=== PATIENT | male | born 1985 | race Caucasian/White ===

== ENCOUNTER 2019-01-30 15:51 | Emergency (ER) | payer OTHER ==
--- NOTE | 2019-01-30 15:50 | EDPHY ---
H & P Time Seen by Provider: 01/30/19 16:47 Constitutional: Initial Vital Signs Temperature (C) 36.6 C 01/30/19 15:56 Heart Rate 75 01/30/19 15:56 Respiratory Rate 16 01/30/19 15:56 Blood Pressure 140/105 H 01/30/19 15:56 O2 Sat (%) 98 01/30/19 15:56 O2 Delivery Mode Room Air Allergies/Adverse Reactions: No Known Allergies Allergy (Unverified 01/30/19 16:07) Home Medications: Medication Instructions Recorded Ibuprofen [Motrin] 800 mg PO Q8 #20 tab 01/30/19 Medical Decision Making - Diagnostics Imaging Results: Imaging Impressions Head CT 01/30/19 15:58 Impression: Normal CT of the brain (without and with contrast enhancement). Consider MRI of the brain (without and with contrast), if there is continuing clinical concern, and if not contraindicated. Findings were discussed with Nikhil Parra MD at 17:43, on 01/30/2019. Imaging: Discussed imaging studies w/ banquet server on call Radiologist, I viewed and interpreted images myself ED Course/Re-evaluation: CHIEF COMPLAINT: Headache HISTORY OF PRESENT ILLNESS: 33-year-old gentleman who works for [employer]. He has had a worsening headache for approximately 2 weeks. The headaches on the right side of his head. He does denies any fevers or chills, no nausea vomiting, no photophobia, no acoustic phobia, no neurologic problems. He also states however that despite the fact he has migraines at times and has had for years this 1 seems a bit different than him a different place. Patient denies neck stiffness or neck pain. Patient denies trauma. Patient denies blood thinners. Ablation denies any sinus problems. REVIEW OF SYSTEMS: A comprehensive 10 system review of systems is otherwise negative aside from elements mentioned in the history of present illness and medical decision making. PHYSICAL EXAM: HR, BP, O2 Sat, RR. Temp noted General Appearance: Alert, well hydrated, appropriate, and non-toxic appearing. Head: Atraumatic without scalp tenderness or obvious injury Eyes: Pupils equal, round, reactive to light and accommodation, EOMI, no trauma , no injection. Ears: Clear bilaterally, no perforation, normal landmarks Nose: Atraumatic, no rhinorrhea, clear. Throat: There is no erythema or exudates, no lesions, normal tonsils, mucus membranes moist. Neck: Supple, 2+ carotid upstroke, nontender, no lymphadenopathy. Respiratory: No retractions, no distress, no wheezes, and no accessory muscle use. Lungs are clear to auscultation bilaterally. Cardiovascular: Regular rate and rhythm, no murmurs, rubs, or gallops. Bilateral carotid, radial, dorsalis pedis, and posterior tibial pulses intact. Good capillary refill all extremities. Gastrointestinal: Abdomen is soft, nontender, non-distended, no masses, no rebound, no guarding, no peritoneal signs. Musculoskeletal: Normal active ROM of all extremities, atraumatic. Neurological: Alert, appropriate, and interactive. The patient has normal DTRs and non-focal cranial nerves, motor, sensory, and cerebellar exam. Skin: No rashes, good turgor, no nodules on palpation. 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 MEDICAL DECISION MAKING: This patient has a headache which has been progressive for 2 weeks. I have given him Toradol, dexamethasone, and Reglan. I am doing neuro imaging to make sure there is no bleed and no mass. 1647: Patient's headache has almost completely resolved after medication. He still has a fullness, but no longer has a sharp pain. 1745: I spoke with Dr. Pascual, radiologist, who reports that the head CT has no acute findings. 1755: Reassessed patient and discussed imaging findings. I have prescribed him Motrin and advised him to follow up with a neurologist. Return precautions provided; patient is comfortable with this plan. - Data Points Laboratory Results: 01/30/19 16:14 POC Hgb 15.3 gm/dL gm/dL (13.7-17.5) POC Hct 45 % % (40-51) POC Sodium 141 mEq/L mEq/L (135-145) POC Potassium 3.2 mEq/L L mEq/L (3.3-5.0) POC Chloride 103 mEq/L mEq/L (97-110) POC Total CO2 23 mEq/L mEq/L (22-31) POC BUN 12 mg/dL mg/dL (7-23) POC Creatinine 0.9 mg/dL mg/dL (0.7-1.3) POC Glucose 95 mg/dL mg/dL (70-100) Medications Given: Discontinued Medications Dexamethasone (Decadron Injection) 10 mg IVP EDNOW ONE Stop: 01/30/19 15:57 Last Admin: 01/30/19 16:12 Dose: 10 mg Ketorolac Tromethamine (Toradol) 30 mg IVP EDNOW ONE Stop: 01/30/19 15:57 Last Admin: 01/30/19 16:11 Dose: 30 mg Metoclopramide HCl (Reglan Injection) 10 mg IVP EDNOW ONE Stop: 01/30/19 15:57 Last Admin: 01/30/19 16:12 Dose: 10 mg Point of Care Test Results: Chemistry 01/30/19 16:14 POC Sodium 141 mEq/L mEq/L (135-145) POC Potassium 3.2 mEq/L L mEq/L (3.3-5.0) POC Chloride 103 mEq/L mEq/L (97-110) POC Total CO2 23 mEq/L mEq/L (22-31) POC BUN 12 mg/dL mg/dL (7-23) POC Creatinine 0.9 mg/dL mg/dL (0.7-1.3) POC Glucose 95 mg/dL mg/dL (70-100) ISTAT H&H 01/30/19 16:14 POC Hgb 15.3 gm/dL gm/dL (13.7-17.5) POC Hct 45 % % (40-51) Departure - Departure Disposition: Home, Routine, Self-Care Clinical Impression: Headache Qualifiers: Headache type: unspecified Headache chronicity pattern: acute headache Intractability: intractable Qualified Code(s): R51 - Headache Condition: Good Instructions: Acute Headache (ED) Additional Instructions: 1. Follow-up with your primary care physician within 72 hours. 2. Return to the emergency department immediately for recurrence of headache, nausea, vomiting, numbness, weakness, neck pain, fever or other concerns. 3. Use Tylenol and/or ibuprofen as directed. Referrals: Scooter Raines MD [Medical Doctor] - As per Instructions Prescriptions: Ibuprofen [Motrin] 800 mg PO Q8 #20 tab
[2019-01-30] MEDS ORDERED: DEXAMETHASONE 10 MG/ML VIAL IVP ONE (15:56)
[2019-01-30] MEDS ORDERED: KETOROLAC 30 MG/1 ML SDV IVP ONE (15:56)
[2019-01-30] MEDS ORDERED: METOCLOPRAMIDE 10 MG/2 ML VIAL IVP ONE (15:56)
[2019-01-30] MEDS ORDERED: IOPAMIDOL (ISOVUE-300) 100 ML BTL ONE (16:46)
[2019-01-30 18:02] VITALS: BP 141/93
== END 2019-01-30 18:01 | disposition home or self-care (01) ==
DX: R51 Headache (principal)
CPT/HCPCS: 82435-PO; 82565-PO; 82947-PO; 84132-PO; 84295-PO; 84520-PO; 85014-ER; 96374; J1100; J1885; J2765; Q9967